=== PATIENT | male | born 1975 | race Caucasian/White ===

== ENCOUNTER 2016-11-16 16:18 | Observation (INO) | payer OTHER ==
[2016-11-16] MEDS ORDERED: Ondansetron INJ* 2 MG/ML VIAL IV ONE (17:10)
[2016-11-16] MEDS ORDERED: Morphine INJ* 2 MG/ML 1 ML SYRINGE IV ONE (17:10)
[2016-11-16] MEDS ORDERED: Morphine INJ* 4 MG/ML 1 ML SYRINGE ONE (17:11)
[2016-11-16] MEDS ORDERED: Ondansetron INJ* 2 MG/ML VIAL ONE (17:11)
[2016-11-16] MEDS ORDERED: NS 0.9% 1000 ML*IV.FLUID IV ONE (17:15)
[2016-11-16] MEDS ORDERED: NS 0.9% 1000 ML* 1,000 ML IV ONE (17:40)
--- NOTE | 2016-11-16 17:40 | ED ---
GI/ HPI - HPI Summary HPI Summary: Patient presents to ED with 2 year hx of umbilical hernia. He states he has had no complications until about 3 days ago when he started to feel increased pressure, pain, difficulty urinating, and tenderness in the testicles, with nausea. He states he has been able to reduce the hernia in the past and states he "pushes it in," and this incident he feels upon pushing it, it is not reducing but he also states he cannot touch the area for very long as it is painful. Upon arrival, pain was 10/10. Upon discussing possible surgery, he states after re-evaluation a 8/10. Denies back pain, fever or GALVIN. Denies other feelings of illness. No color changes are noted. He endorses diarrhea x 2 days and is passing gas. - History of Current Complaint Chief Complaint: EDAbdPain Time Seen by Provider: 11/16/16 16:48 Stated Complaint: ABD PAIN Hx Obtained From: Patient Onset/Duration: Started Days Ago Timing: Intermittent Severity: Moderate Current Severity: Severe Pain Intensity: 5 Location of Pain: Umbilical Additional Locations for Males: Scrotum, Testicles Pain Characteristics: Colicy, Cramping Associated Signs and Symptoms: Positive: Nausea, Diarrhea Aggravating Factor(s): Straining, Coughing, Deep Breaths, Walking/Exertion Alleviating Factor(s): Rest - Allergy/Home Medications Allergies/Adverse Reactions: Allergies Allergy/AdvReac Type Severity Reaction Status Date / Time Amoxicillin Allergy Intermediate Swelling Verified 10/07/16 13:21 PMH/Surg Hx/FS Hx/Imm Hx Previously Healthy: Yes Endocrine/Hematology History: Denies: Hx Diabetes, Hx Thyroid Disease Cardiovascular History: Denies: Hx Hypercholesterolemia, Hx Hypertension - Had been treated in the past not on any medication, Hx Pacemaker/ICD Respiratory History: Reports: Hx Seasonal Allergies Denies: Hx Asthma, Hx Chronic Obstructive Pulmonary Disease (COPD) GI History: Reports: Hx Gastroesophageal Reflux Disease Denies: Hx Ulcer History: Denies: Hx Renal Disease Musculoskeletal History: Reports: Hx Back Problems Sensory History: Reports: Hx Contacts or Glasses - Reading Denies: Hx Hearing Aid Opthamlomology History: Reports: Hx Contacts or Glasses - Reading Neurological History: Reports: Other Neuro Impairments/Disorders - PAIN CLINIC PATIENT Psychiatric History: Reports: Hx Anxiety, Hx Depression Denies: Hx Panic Disorder Infectious Disease History: No Infectious Disease History: Denies: Hx Hepatitis, Hx Human Immunodeficiency Virus (HIV), Traveled Outside the [place] in Last 30 Days - Social History Occupation: Employed Full-time Lives: With Family Alcohol Use: Occasionally Hx Substance Use: No Substance Use Type: Reports: None Substance Use Comment - Amount & Last Used: nucynta Hx Tobacco Use: Yes Smoking Status (MU): Former Smoker Type: Cigarettes Amount Used/How Often: 3 cigarettes/month Have You Smoked in the Last Year: Yes Review of Systems Positive: Skin Diaphoresis Positive: Erythema - injected eyes bilaterally ENT: Negative Cardiovascular: Negative Respiratory: Negative Positive: Abdominal Pain - umbilical pain Positive: other - decreased urination Musculoskeletal: Negative Skin: Negative Neurological: Negative Positive: Anxious All Other Systems Reviewed And Are Negative: Yes Physical Exam Triage Information Reviewed: Yes Vital Signs On Initial Exam: Initial Vitals Temp Pulse Resp BP Pulse Ox 98.5 F 102 24 113/82 100 11/16/16 16:20 11/16/16 16:20 11/16/16 16:20 11/16/16 16:20 11/16/16 16:20 Vital Signs Reviewed: Yes Appearance: Positive: Well-Nourished, Pain Distress Skin: Positive: Warm, Skin Color Reflects Adequate Perfusion Head/Face: Positive: Normal Head/Face Inspection Eyes: Positive: EOMI, LILY, Conjunctiva Inflammed Neck: Positive: Supple, Nontender, No Lymphadenopathy Respiratory/Lung Sounds: Positive: Clear to Auscultation, Breath Sounds Present Cardiovascular: Positive: Normal, RRR Abdomen Description: Positive: Hernia @ - umbilicus hernia without color changes , seems to be reducible on visulization, but unable to palpate d/t pain, Other: Bowel Sounds: Positive: Present Musculoskeletal: Positive: Normal, Strength/ROM Intact Neurological: Positive: Sensory/Motor Intact, Alert, Oriented to Person Place, Time, Speech Normal Psychiatric: Positive: Normal AVPU Assessment: Alert - Yudith Coma Scale Best Eye Response: 4 - Spontaneous Best Motor Response: 6 - Obeys Commands Best Verbal Response: 5 - Oriented Diagnostics - Vital Signs Vital Signs Temp Pulse Resp BP Pulse Ox 11/16/16 17:16 16 11/16/16 16:20 98.5 F 102 24 113/82 100 - Laboratory Result Diagrams: 11/16/16 17:05 11/16/16 17:05 Lab Statement: Any lab studies that have been ordered have been reviewed, and results considered in the medical decision making process. Re-Evaluation - Re-Evaluation First Eval Change: Unchanged - pain medication not given yet. Dr. Carney consulted. Angelika came to see patient and states d/t reducible state, this is unlikely to be an emergent case. Will perform US to see if incarcerated. Second Eval Change: Worse - worse 1 hour after morphine 4mg Third Eval Change: Unchanged - dilaudid given. patient feeling the same. GIGU Course/Dx - Course Course Of Treatment: Patient arrives with a known umbilical hernia which is now causing 10/10 intermittent pain with diarrhea, back pain and nausea. Consulted with Dr. Carney who came to see the patient at 7pm and suggested surgery on monday. Nothing emergent d/t reducible hernia found on examination. Patient now requesting surgery immediately, Dr. Carney consulted again which stated admit to service and will see him for possible surgery in the morning. Will be NPO at midnight. Morphine, fluids, dilaudid given. Now more comfortable but still c/o 5/10 pain in the umbilical area. - Diagnoses Differential Diagnoses - Male: Incarcerated Hernia, Ischemic Bowel, Other - hernia Provider Diagnoses: Umbilical hernia Discharge - Discharge Plan Condition: Stable Disposition: ADMITTED TO [facility] Referrals: Tejinder Carney MD [Medical Doctor] - Diaz Chambers MD [Primary Care Provider] - Images - Images Full Body (No Head): 1 - hernia - reducible - without color changes
[2016-11-16 17:49] LABS: Hematocrit 45 % (42-52); Hemoglobin 15.2 g/dl (14.0-18.0); Mean Corpuscular HGB Conc 34 g/dl (31-36); Mean Corpuscular Hemoglobin 32 pg (27-31); Mean Corpuscular Volume 94 fL (80-94); Mean Platelet Volume 8 um3 (7.4-10.4); Red Blood Count 4.75 10^6/ul (4.0-5.4); Red Cell Distribution Width 13 % (10.5-15); White Blood Count 8.3 10^3/ul (3.5-10.8)
[2016-11-16 18:01] LABS: Albumin 4.1 g/dL (3.2-5.2); C Reactive Protein 2.96 mg/L (< 5.00); Calcium 10.1 mg/dL (8.6-10.3); EGFR African American 136.3 (>60); Globulin 3.7 g/dL (2-4); Potassium 3.5 mmol/L (3.5-5.0); Total Bilirubin 0.4 mg/dL (0.2-1.0); Total Protein 7.8 g/dL (6.4-8.9)
--- NOTE | 2016-11-16 18:25 | RAD ---
Indication: Lump at the umbilical region for 5 months with interval growth and pain today. Comparison: March 20, 2006 CT. Technique: Ultrasound of the umbilical region corresponding with the region of pain. Report: Fat-containing umbilical hernia identified measuring up to 2.6 cm transverse by 0.9 cm AP. The hernia measures up to approximate 2 cm cephalocaudal. No definitive bowel loops visualized extending into the hernia. IMPRESSION: Fat-containing umbilical hernia similar in size to the 2006 CT. No definitive extension of bowel loops into the hernia visualized.
[2016-11-16] MEDS ORDERED: LORazepam INJ* 2 MG/ML 1 ML VIAL IV PUSH ONE (19:30)
[2016-11-16] MEDS ORDERED: HYDROmorphone* 1 MG/ML 1 ML SYR IV SLOW PU ONE (19:30)
[2016-11-16] MEDS ORDERED: HYDROmorphone* 1 MG/ML 1 ML SYR IV SLOW PU PRN (20:22)
[2016-11-16] MEDS ORDERED: Ondansetron INJ* 2 MG/ML VIAL IV PRN (20:23)
[2016-11-16] MEDS: HYDROmorphone* 1 MG/ML 1 ML SYR IV SLOW PU PRN (21:21)
--- NOTE | 2016-11-17 03:31 | HP ---
HISTORY AND PHYSICAL: DATE OF ADMISSION: 11/16/16 PRIMARY CARE PROVIDER: Dr. Diaz Chambers. ATTENDING PHYSICIAN: Dr. Quirino Reardon* (dictated by Miroslava Givens NP). CHIEF COMPLAINT: Abdominal pain. HISTORY OF PRESENT ILLNESS: Mr. Nowak is a 41-year-old male with past medical history significant for chronic back pain, anxiety, depression, and GERD , who presents to the emergency room with complaints of abdominal pain. The patient has a known history of an umbilical hernia for the last 2 years and until the last 3 days has had no issues. The patient reports he has had increased pressure in his abdomen. He is typically able to reduce the umbilical hernia without difficulty, but has had pain so severe that he has been unable to touch the area to reduce the hernia. The patient denies any fever, chills, chest pain, shortness of breath. He does report diarrhea that started today in addition to nausea and vomiting. Based off on concern for his abdominal pain, the patient presented to the emergency room for further evaluation of his symptoms. While in the emergency room, the patient received IV morphine, Ativan, Zofran, and normal saline. He was seen in consultation by Dr. Tejinder Carney with Surgery , who felt the patient could be discharged to home with possible surgery on Monday. The patient was reassessed and continued to have abdominal pain after the morphine. The patient was reevaluated again, given Dilaudid. At that time, Dr. Carney was reconsulted, who asked for the patient to be admitted for possible surgery in the morning. The patient had an abdominal ultrasound showing a fat containing umbilical hernia similar to size from 2006 CT. Hospitalists were asked to evaluate the patient for admission. PAST MEDICAL HISTORY: 1. Gastroesophageal reflux disease. 2. Seasonal allergies. 3. Chronic back pain, patient follows with the pain clinic. 4. Anxiety, depression. PAST SURGICAL HISTORY: None. HOME MEDICATIONS: Include: 1. Zoloft 50 mg oral daily. 2. Multivitamin one tablet oral daily. 3. Ibuprofen 800 mg oral every 8 hours as needed for pain. 4. Flexeril 10 mg oral 3 times daily as needed for muscle spasms. 5. Aspirin 81 mg oral daily. 6. Nexium 20 mg oral daily. ALLERGIES: AMOXICILLIN. FAMILY HISTORY: The patient reports that his father had history of coronary artery disease with history of [place] and passed at age 73. The patient's father also had a history of lung cancer. The patient denies any family history of diabetes mellitus. SOCIAL HISTORY: The patient is a current smoker, smoking approximately half a pack a day for the last 2 years. The patient occasionally drinks alcoholic beverages. He denies recreational drug use. 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 The patient is single. His sister Aga will be his surrogate decision makers in the event he is unable to make decisions for himself. REVIEW OF SYSTEMS: I performed a 14-point review of systems. All the pertinent positives and negatives are mentioned in the history of present illness. The remaining review of systems is negative. PHYSICAL EXAMINATION GENERAL APPEARANCE: The patient is alert, pleasant, appears to be in no acute distress. VITAL SIGNS: Temperature 98.5, heart rate 102, respiratory rate 24, O2 sat 100 % on room air, blood pressure 113/82. HEENT: Normocephalic, atraumatic. Pupils are equal and reactive to light. Extraocular movements are intact. RESPIRATORY: There is no accessory muscle use and the lungs are clear to auscultation bilateral. CARDIOVASCULAR: Regular rate and rhythm. S1, S2 present. There are no murmurs , rubs, or gallops heard. ABDOMEN: Soft, nontender, nondistended. There is umbilical hernia noted. There are bowel sounds present x4. EXTREMITIES: There is no lower extremity edema. DP and PT pulses are 2+ and symmetric. MUSCULOSKELETAL: There is no clubbing or cyanosis noted. The patient exhibits good strength in all extremities. NEUROLOGICAL: The patient is alert and oriented x4. Although the patient is currently experiencing some visual hallucinations after receiving pain medication in the emergency room. Cranial nerves II through XII are grossly intact. PSYCHOLOGICAL: The patient is calm and cooperative. SKIN: There is no rash or abnormality seen. DIAGNOSTIC STUDIES/LABORATORY DATA: Sodium 134, potassium 3.5, chloride 104, CO2 of 22, BUN 8, creatinine 0.80, glucose 102. White blood cell count 8.3, hemoglobin 15.2, hematocrit 45, platelet count 291. Abdomen ultrasound from today. Radiologist's impression: Fat containing umbilical hernia similar in size to the 2006 CT. No definitive extension of bowel loops into the hernia visualized. IMPRESSION: Mr. Nowak is a 41-year-old male with past medical history significant for chronic back pain, GERD, anxiety, depression, who presents to the emergency room with complaints of abdominal pain. He will be admitted on observation for umbilical hernia and intractable abdominal pain. ASSESSMENT: 1. Abdominal pain. The patient has a reducible umbilical hernia. The patient was seen in consultation by Dr. Carney with Surgery. At this time, the patient will be admitted for pain control and possible surgery in the morning. He will be n.p.o. after midnight. Surgery will reevaluate the patient in the morning. 2. Anxiety and depression. The patient will be continued on his home Zoloft. 3. Fluids, electrolytes, nutrition. The patient will have a clear liquid diet and will be n.p.o. after midnight. He will have receive LR at 125 mL an hour. 4. Code status. Full code. 5. DVT prophylaxis. The patient is at low risk and will be encouraged to ambulate. 6. Disposition. Observation. TIME SPENT: The time spent for this admission was 45 minutes and 25 minutes was spent face to face with the patient and sister discussing medications, past medical history, and the events leading up to his arrival today and performing a physical examination. The case has been reviewed with the attending, Dr. Reardon, who agrees with the plan of care. Reviewed by RONALD SERRANO 11/17/16 1502 CC: Dr. Diaz Chambers * [id number]/[facility] #: [id number] MTDYessenia
[2016-11-17] MEDS: HYDROmorphone* 1 MG/ML 1 ML SYR IV SLOW PU PRN (04:18)
[2016-11-17] MEDS ORDERED: Omeprazole CAP* 20 MG PO SCH (09:00)
[2016-11-17] MEDS ORDERED: Sertraline* 50 MG TAB PO SCH (09:00)
--- NOTE | 2016-11-17 11:10 | SURGPN ---
Subjective - Introduction -: Admitted on: 11/16/2016 Patient's surgical date: Scheduled for umbilical hernia repair this afternoon 11/17/2016 Procedure completed: - Medications -: Active Medications Generic Name Dose Route Start Last Admin Trade Name Palak PRN Reason Stop Dose Admin Hydromorphone HCl 0.5 mg 11/16/16 20:40 11/17/16 04:18 Dilaudid Iv* IV SLOW PU 0.5 mg Q4H PRN Administration PAIN Lactated Ringer's 1,000 mls @ 125 mls/hr 11/16/16 21:00 11/17/16 05:58 Lactated Ringers 1000 Ml Bag* IV 125 mls/hr PER RATE ROMAN Administration Omeprazole 20 mg 11/17/16 09:00 11/17/16 08:23 Prilosec Cap* PO 20 mg DAILY ROMAN Administration Protocol Ondansetron HCl 4 mg 11/16/16 20:23 Zofran Inj* IV Q6H PRN NAUSEA Sertraline HCl 50 mg 11/17/16 09:00 11/17/16 08:23 Zoloft* PO 50 mg DAILY ROMAN Administration - Comments Comments: Reports improvement with umbilical pain since last night. No N/V, fever or chills. Objective - Objective -: Awake and alert, comfortable on bed, in NAD - Intake and Output -: Intake & Output 11/15/16 11/16/16 11/17/16 11/18/16 06:59 06:59 06:59 06:59 Intake Total 958 Output Total 300 200 Balance 658 -200 Weight 145 lb Intake: IV Fluids 958 Oral 0 Output: Urine 300 200 Surgical Physical Exam - Comments -: Vitals reviewed, stable, afibrile Abdomen: soft, non-distended. Small umbilical hernia noted, less than 1cm in diameter, moderately tender on palpation, non-reducible. No other hernias or masses. No rigidity or rebound tenderness. Lungs: CTA bilat. Assessment and Plan - Assessment -: A 41 y/o male with incarcerated umbilical hernia, clinically stable. - Plan Additional Comments: Patient has been NPO since last night. Discussed with him proceeding with an open umbilical hernia repair. Discussed the rationale, indications, risks and benefits. He understood and wishes to proceed as planned.
--- NOTE | 2016-11-17 14:43 | CONS ---
CONSULTATION REPORT: DATE OF CONSULTATION: 11/17/16 CONSULTED TO: Dr. Mauro Cherry. REASON FOR CONSULTATION: Umbilical pain. HISTORY OF PRESENT ILLNESS: Mr. Nowak is a pleasant 41-year-old gentleman who presented to the emergency room last evening with complaints of worsening umbilical pain for the last couple of days. The patient notes that he had a known history for an umbilical hernia for years that has never got ten any bigger in size. He was able to reduce it every time he noticed a bulge in the umbilical are a. He notes that for the last 2-3 days, he has been having a little bit of cold symptoms, for which he has been sneezing and coughing a lot. He noticed increased bulge and progressive pain in the um bilical area today. He was not able to reduce his hernia for which he went to the emergency room fo r further evaluation. Upon arrival to the emergency room, he had some pain medication and he was ab le to reduce the hernia himself, but he noticed that the area was very tender and he was concerned a bout that fact. He denies any changes in the bowel habits or similar symptoms in the past. He note s that the pain is dull for the most and some sharp episodes, and it is localized to the umbilical a kiet with no radiation anywhere else. He denies any other associated symptoms. He otherwise is a re latively healthy middle-aged gentleman with no significant past medical history. He was evaluated i n the emergency room and he was admitted under the hospitalist service with surgical consult in anti cipation for possible umbilical hernia repair. PAST MEDICAL HISTORY: Significant for: 1. Gastroesophageal reflux disease. 2. Seasonal allergies. 3. Chronic back pain and he has been followed by the pain clinic. 4. Anxiety and depression. PAST SURGICAL HISTORY: None. CURRENT MEDICATIONS: His medications at home include: 1. Zoloft 50 mg p.o. daily. 2. Multivitamin 1 tablet daily. 3. Ibuprofen 800 mg 3 times daily as needed for pain. 4. Flexeril 10 mg t.i.d. p.r.n. for muscle spasm. 5. Aspirin 81 mg p.o. daily. 6. Nexium 20 mg p.o. daily. ALLERGIES: He reports allergies to AMOXICILLIN. SOCIAL HISTORY: The patient is a current smoker, who smokes in average about a pack every week and he occasionally drinks alcohol beverages. His caffeine intake is moderate and he denies any recreat ional drug use. FAMILY HISTORY: He denies any family history of colorectal malignancies, although he reports some f amily history of coronary artery disease on his father's side. REVIEW OF SYSTEMS: See HPI, otherwise negative. He reports umbilical pain and history of umbilical hernia, but denies any nausea, vomiting, changes in the bowel habits. No headache, dizziness, blur red vision, chest pain, shortness of breath, or palpitation. He denies any dysuria, hematuria, or u rinary frequency. PHYSICAL EXAM: Vitals: His most recent set of vitals revealed temperature of 98.2 orally, a pulse of 84, respiration of 16, O2 sats of 100, and blood pressure of 115/62. General: He is a healthy-a ppearing middle-aged gentleman, comfortable on bed, and in no acute distress or discomfort at the ti me of consultation. HEENT: Sclerae anicteric. PERRLA. EOMs intact. Oropharynx is pink, moist wit h no exudate. Neck: Supple. Trachea midline. No cervical adenopathy, thyromegaly, or JVD. Lungs : Clear to auscultation bilaterally. Heart: Regular rate and rhythm. Normal S1 and S2 without rub s, murmurs, or gallops. Back: With normal curvature. No CVA tenderness. Abdomen: Soft and nondis tended. Moderate umbilical tenderness noted on palpation and a small umbilical hernia was noted. I was not able to reduce the small hernia that measured approximately less than 1 cm in diameter. The re was no abdominal distention noted. No guarding, rigidity, or rebound tenderness. No other herni as, masses, or organomegaly. Extremities: Without cyanosis, clubbing, or edema. Neurologic: Mercedes sly intact. Rectal: Exam deferred at this time. LABORATORY WORKUP: CBC with white count of 8300, hemoglobin 15.2, hematocrit 45, and platelets of 2 91. His chemistry was sodium of 134, potassium 3.5, chloride 104, CO2 22, BUN of 8, creatinine of 0 .8. Glucose 102. LFTs, amylase, and lipase were essentially within normal limits. ACCESSORY DIAGNOSTIC DATA: The patient had an ultrasound of the abdomen that revealed a small fat-c ontaining umbilical hernia that was similar in size compared to the 2006 CT scan study. There are n o loops of bowel noted within the hernia. IMPRESSION: A 41-year-old gentleman with increasing umbilical pain in relation to a small incarcera philip umbilical hernia. PLAN: The patient was admitted under hospitalist service and consulted by Surgery today. He has be en NPO since last night. I went on and discussed with him proceeding with an open umbilical hernia repair, given his ongoing symptoms and worsening pain and unable to reduce the hernia since last nig ht. The rationale, indications, risks, and benefits of surgery was discussed with him including but not limited to infection, bleeding, or injury to adjacent structures. He seems to understand and w ishes to proceed with surgery. We will follow him up accordingly. AMALIA HURLEY [id number]/[facility] #: [id number]
[2016-11-17] MEDS ORDERED: fentaNYL* 50 MCG/ML 2 ML VIAL (100 MCG VIAL) ONE (16:05)
[2016-11-17] MEDS ORDERED: Midazolam* 1 MG/ML 5 ML VIAL (5 MG) ONE (16:06)
[2016-11-17] MEDS ORDERED: Lidocaine 1% INJ* 10 MG/ML 30 ML SDV ONE (16:09)
[2016-11-17] MEDS ORDERED: Bupivacaine 0.5% W/EPI SDV* 30 ML VIAL ONE (16:09)
[2016-11-17] MEDS ORDERED: Propofol* 10 MG/ML 20 ML BTL IV PUSH ONE (16:48)
[2016-11-17] MEDS ORDERED: Lidocaine 2% PF* 5 ML VIAL ONE (16:48)
[2016-11-17] MEDS ORDERED: oxyCODONE/Acetamin 5/325 MG* TAB PO PRN ×2 (17:12)
--- NOTE | 2016-11-17 17:20 | SURGPN ---
Brief Operative Note - Surgery Procedures: PREOP/POSTOP DX: UMBILICAL HERNIA PROC: OPEN REPAIR UMBILICAL HERNIA SURG: MECENAS ASSIST: NONE ANES: LOCAL POLLY/NOBLE EBL: MIN SPEC: NONE DRAIN: NONE COMPL: NONE COND: STABLE TO RR
[2016-11-17 17:50] VITALS: BP 112/92
--- NOTE | 2016-11-17 19:43 | DCNOTE ---
Patient was discharged from PACU following umbilical hernia repair by Dr Cherry. Please see detailed discharge summary from Dr Cherry.
--- NOTE | 2016-11-18 12:38 | OP ---
DATE OF OPERATION: 11/17/16 - ROOM #331 DATE OF : 73 SURGEON: Mauro Cherry MD ROBOTIC MACHINE TENDER PRODUCTION: None. ANESTHESIOLOGIST: Dr. Taveras. ANESTHESIA: Local MAC. PRE-OP DIAGNOSIS: Umbilical hernia. POST-OP DIAGNOSIS: Umbilical hernia. OPERATIVE PROCEDURE: Open repair of umbilical hernia. ESTIMATED BLOOD LOSS: Minimal. IV FLUIDS: Crystalloid. SPECIMEN: None. DRAINS: None. COMPLICATIONS: None. COUNTS: Instrument, needle, and sponge counts correct. DESCRIPTION OF PROCEDURE: The patient was brought to the operating room and placed on the table supine. Sequential compression devices were placed in both lower extremities. Intravenous sedation was administered. The abdomen was prepped and draped in the usual sterile fashion. Time-out was performed. Local anesthetic was infiltrated into the skin and soft tissue prior to making each incision. A curvilinear infraumbilical incision was created. The umbilical stalk was elevated and dissected free from the anterior abdominal wall. A 1 cm umbilical hernia was identified. The edges were freshened to identify fascia. The fascia was closed in a vest over pants repair with 0 Ti- Cron. The umbilical stalk was reapproximated at the anterior abdominal wall with 3-0 Polysorb. Skin was closed with two layers using 3-0 Polysorb for the deep dermis and 4-0 Monocryl in a running subcuticular fashion for the skin edge. Steri-Strips were applied. Compression dressing was applied. The patient tolerated the procedure well, was transferred to recovery in stable condition. [id number]/[facility] [place]: [id number] MTDD
== END 2016-11-17 17:57 | disposition home or self-care (01) ==
LOC: ED 16:18 → SSU 20:21
PROVIDERS: ADMIT Hospitalist; ATTEND Surgery
PROC: 0WQF0ZZ Repair Abdominal Wall, Open Approach (ICD-10-PCS; principal; 2016-11-16)
DX: K42.9 Umbilical hernia without obstruction or gangrene (principal); K21.9 Gastro-esophageal reflux disease without esophagitis; M54.9 Dorsalgia, unspecified; G89.29 Other chronic pain; F41.9 Anxiety disorder, unspecified; F32.9 Major depressive disorder, single episode, unspecified; Z79.82 Long term (current) use of aspirin; Z79.899 Other long term (current) drug therapy; F17.210 Nicotine dependence, cigarettes, uncomplicated; Z88.0 Allergy status to penicillin
CPT/HCPCS: 36415; 76705; 80053; 82550; 83690; 85025; 86140; 96361; 96374; 96375; 99284; A9270-GY; G0378; J1170; J2001; J2060; J2250; J2270; J2405; J2704; J3010

== ENCOUNTER 2019-03-17 23:41 | Emergency (ER) | payer BC ==
[2019-03-18] MEDS ORDERED: predniSONE TAB* 20 MG PO ONE (02:31)
--- NOTE | 2019-03-18 02:31 | ED ---
Respiratory - HPI Summary HPI Summary: This patient is a 43 year old M presenting to ED with a chief complaint of cough since 03/13/19. The cough is described as pins in the chest, and he believes he has bronchitis. The patient rates the pain 0/10 in severity. Symptoms aggravated by nothing. Symptoms alleviated by nothing. Patient denies edema. - History of Current Complaint Chief Complaint: EDUpperRespComplaint Stated Complaint: PRETTY SURE I HAVE BRONCHITIS PER PT Time Seen by Provider: 03/18/19 02:22 Hx Obtained From: Patient Onset/Duration: Lasting Days - Since 03/13/19, Still Present Initial Severity: Mild Current Severity: Mild Pain Intensity: 0 Character: Cough (Nonproductive) Aggravating Factor(s): Nothing Alleviating Factor(s): Nothing Associated Signs and Symptoms: Negative - Edema - Allergy/Home Medications Allergies/Adverse Reactions: Allergies Allergy/AdvReac Type Severity Reaction Status Date / Time amoxicillin Allergy Rash Verified 03/17/19 23:45 PMH/Surg Hx/FS Hx/Imm Hx Endocrine/Hematology History: Denies: Hx Diabetes, Hx Thyroid Disease Cardiovascular History: Denies: Hx Hypercholesterolemia, Hx Hypertension - NORMAL NOW WITH WEIGHT LOSS, Hx Pacemaker/ICD Respiratory History: Reports: Hx Seasonal Allergies Denies: Hx Asthma, Hx Chronic Obstructive Pulmonary Disease (COPD) GI History: Reports: Hx Gastroesophageal Reflux Disease - nexium Denies: Hx Ulcer History: Denies: Hx Renal Disease Musculoskeletal History: Reports: Hx Back Problems Denies: Hx Scoliosis Sensory History: Reports: Other Sensory Impairments - numbness in testicles and penis Denies: Hx Contacts or Glasses - Reading, Hx Hearing Aid Opthamlomology History: Reports: Other Sensory Impairments - numbness in testicles and penis Denies: Hx Contacts or Glasses - Reading Neurological History: Denies: Hx Headaches Comment Only: Other Neuro Impairments/Disorders - PAIN CLINIC PT Psychiatric History: Reports: Hx Anxiety, Hx Depression Denies: Hx Panic Disorder - Surgical History Surgery Procedure, Year, and Place: umbilical hernia repair november 2016 Hx Anesthesia Reactions: No Infectious Disease History: No Infectious Disease History: Denies: Hx Hepatitis, Hx Human Immunodeficiency Virus (HIV), Traveled Outside the [place] in Last 30 Days - Social History Alcohol Use: Weekly Alcohol Amount: 1 Hx Substance Use: No Substance Use Type: Reports: None Substance Use Comment - Amount & Last Used: nucynta Hx Tobacco Use: Yes Smoking Status (MU): Former Smoker Type: Cigarettes Amount Used/How Often: 2 cigarettes/month Have You Smoked in the Last Year: No Review of Systems Positive: Cough Musculoskeletal: Negative - Edema All Other Systems Reviewed And Are Negative: Yes Physical Exam - Summary Physical Exam Summary: Appearance: Well appearing, no pain distress Skin: warm, dry, reflects adequate perfusion Head/face: normal Eyes: EOMI, LILY ENT: normal Neck: supple, non-tender Respiratory: bilateral wheezing Cardiovascular: RRR, pulses symmetrical Abdomen: non-tender, soft Musculoskeletal: normal, strength/ROM intact Neuro: normal, sensory motor intact, A&Ox3 Triage Information Reviewed: Yes Vital Signs On Initial Exam: Initial Vitals Temp Pulse Resp BP Pulse Ox 98.3 F 105 20 142/89 99 03/17/19 23:43 03/17/19 23:43 03/17/19 23:43 03/17/19 23:43 03/17/19 23:43 Vital Signs Reviewed: Yes Diagnostics - Vital Signs Vital Signs Temp Pulse Resp BP Pulse Ox 03/18/19 01:33 98.1 F 86 16 137/88 99 03/17/19 23:43 98.3 F 105 20 142/89 99 - Laboratory Result Diagrams: 03/18/19 02:58 03/18/19 02:58 Lab Statement: Any lab studies that have been ordered have been reviewed, and results considered in the medical decision making process. - Radiology CXR Radiology Interpretation Completed By: ED Physician Summary of Radiographic Findings: No acute processes, pending official radiology report. - EKG 0236 Cardiac Rate: NL - 77 BPM EKG Rhythm: Sinus Rhythm ST Segment: Normal Ectopy: None Summary of EKG Findings: NSR at 77 BPM, no acute changes. Re-Evaluation - Re-Evaluation First Eval Re-Evaluation Time: 03:58 Change: Improved Comment: Patient reports feeling better. Discussed results with patient. Patient will be discharged w dx of bronchospasm and bronchitis. Pt understands and agrees with this plan. Disposition - Course Course Of Treatment: This patient is a 43 year old M presenting to ED with a chief complaint of cough since 03/13/19. CXR revealed no acute processes, pending official radiology report. In the ED course, patient received Duoneb. Blood work obtained. EKG at 0236 NSR at 77 BPM, no acute changes. Patient will be discharged w dx of bronchospasm and bronchitis. Pt understands and agrees with this plan. - Differential Dx - Cardiopulmonary Differential Diagnoses - Cardiopulmonary: Bronchitis, Pleurisy - Diagnoses Provider Diagnoses: Bronchospasm, Bronchitis Discharge - Sign-Out/Discharge Documenting (check all that apply): Patient Departure - Discharge Patient Received Moderate/Deep Sedation with Procedure: No - Discharge Plan Condition: Stable Disposition: HOME Prescriptions: Albuterol HFA INHALER* [Ventolin HFA Inhaler*] 2 puff INH Q6H PRN #1 mdi MDD 4 PRN Reason: Sob/Wheezing Azithromycin TAB* [Zithromax TAB (Z-ESTEE) 250 mg #6 tabs] 2 tab PO .TODAY, THEN 1 DAILY #1 estee methylPREDNISolone [Medrol Dosepak 4 MG*] 0 mg PO .SEE ESTEE INSTRUCTION #1 tab Patient Education Materials: Acute Bronchitis (ED), Bronchospasm (ED) Referrals: Diaz Chambers MD [Primary Care Provider] - 3 Days Additional Instructions: Follow-up with your primary care provider in three days. RETURN TO THE ER FOR WORSENING OR CHANGING SYMPTOMS. - Billing Disposition and Condition Condition: STABLE Disposition: Home - Attestation Statements Document Initiated by Scribe: Yes Documenting Scribe: Demetris Sauceda Provider For Whom Farshad is Documenting (Include Credential): Lonny Durand MD Scribe Attestation: Demetris Paige, scribed for Lonny Durand MD on 03/18/19 at 0442. Scribe Documentation Reviewed: Yes Provider Attestation: The documentation as recorded by the Demetris riley accurately reflects the service I personally performed and the decisions made by me, Lonny Durand MD Status of Scribe Document: Viewed
[2019-03-18] MEDS: Albuterol/Ipratropium NEB.SOL* Albuterol 2.5 MG/Ipratropium 0.5 MG 3 ML INH ONE ×2 (02:44→02:48)
[2019-03-18] MEDS ORDERED: Albuterol/Ipratropium NEB.SOL* Albuterol 2.5 MG/Ipratropium 0.5 MG 3 ML ONE (02:50)
[2019-03-18 03:05] LABS: ABS Lymphocytes 1.6 10^3/ul (1.0-4.8); ABS Monocytes 0.5 10^3/ul (0-0.8); ABS Neutrophils 4.7 10^3/ul (1.5-7.7); Eosinophil % 0.3 %; Hematocrit 41 % (42-52); Hemoglobin 14.6 g/dL (14.0-18.0); Lymphocyte % 23.5 %; Mean Corpuscular HGB Conc 35 g/dL (31-36); Mean Corpuscular Hemoglobin 33 pg (27-31); Mean Corpuscular Volume 93 fL (80-94); Mean Platelet Volume 7.7 fL (7.4-10.4); Platelet Count 230 10^3/uL (150-450); Red Blood Count 4.45 10^6 /uL (4.18-5.48); Red Cell Distribution Width 13 % (10-15); White Blood Count 6.8 10^3/uL (3.5-10.8)
[2019-03-18 03:13] LABS: Activated Partial Thrombo Time 37.1 seconds (26.0-38.0); INR 0.97 (0.82-1.09)
[2019-03-18 03:23] LABS: Albumin 3.9 g/dL (3.2-5.2); Albumin/Globulin Ratio 1.1 (1-3); EGFR African American 155.9 (>60); EGFR Non-African American 128.9 (>60); Globulin 3.5 g/dL (2-4); Potassium 3.4 mmol/L (3.5-5.0); Total Bilirubin 0.4 mg/dL (0.2-1.0); Total Protein 7.4 g/dL (6.4-8.9)
[2019-03-18 04:29] VITALS: BP 123/75
== END 2019-03-18 04:28 | disposition home or self-care (01) ==
LOC: ED 23:41
DX: J98.01 Acute bronchospasm (principal); J40 Bronchitis, not specified as acute or chronic; Z88.0 Allergy status to penicillin; Z87.891 Personal history of nicotine dependence
CPT/HCPCS: 36415; 71046; 80053; 83880; 84484; 85025; 85610; 85730; 93005; 99282; A9270-GY; J7512